=== PATIENT | female | born 1965 | race Caucasian/White ===

== ENCOUNTER 2020-01-11 13:45 | Outpatient (CLI) | payer MEDICARE, MEDICAID, SELFPAY ==
--- NOTE | 2020-01-11 13:48 | ECG_ITS ---
Measurements Intervals [place] Rate: 59 P: 47 HI: 176 QRS: 28 QRSD: 94 T: 32 QT: 409 QTc: 406 Interpretive Statements SINUS BRADYCARDIA BASELINE ARTIFACT- I, II, III, AVR, AVL, AVF BORDERLINE ECG Electronically Signed On 01-11-2020 14:39:13 CDT by Jewel Barrera D.O.
[2020-01-11 14:49] LABS: Blood Urea Nitrogen 12 mg/dL (7-17); Calcium 8.7 mg/dL (8.4-10.2); Carbon Dioxide 28 mmol/L (22-30); Chloride 102 mmol/L (98-107); Estimated Glomerular Filt Rate > 60; Glucose 79 mg/dL (65-105); Sodium 135 mmol/L (137-145)
[2020-01-16 15:42] LABS: Carbamazepine Tegretol 4.1 mcg/mL (4.0-12.0)
== END 2020-01-11 13:46 | disposition home or self-care (01) ==
LOC: ANHSURGERY 13:48
PROVIDERS: Anesthesiology; PCP Nurse Practitioner Family; Visit Provider Orthopaedic Surgery
DX: Z01.818 Encounter for other preprocedural examination (principal); I10 Essential (primary) hypertension; Z79.899 Other long term (current) drug therapy
CPT/HCPCS: 36415; 80048; 80156; 93005

== ENCOUNTER 2020-01-19 01:07 | Outpatient (CLI) | payer MEDICARE, MEDICAID, SELFPAY ==
[2020-01-19 16:42] LABS: SARS-CoV-2 RNA PCR Negative
== END 2020-01-19 01:08 | disposition home or self-care (01) ==
LOC: ANHCOVIDDT 01:08
PROVIDERS: Visit Provider Orthopaedic Surgery
DX: Z01.812 Encounter for preprocedural laboratory examination (principal); Z20.828 Contact with and (suspected) exposure to other viral communicable diseases
CPT/HCPCS: 87635; C9803; U0003

== ENCOUNTER 2020-01-22 00:10 | Day surgery (SDC) | payer MEDICARE, MEDICAID, SELFPAY ==
[2020-01-09 10:29] VITALS: BMI 27.3
[2020-01-22] VITALS (10 sets, daily range): BP systolic 127–183; BP diastolic 65–105; PULSE 57–108; RESP 13–17; TEMP 36.2–36.7; O2SAT 92–100
--- NOTE | 2020-01-22 07:24 | WPDHPUPDATE1 ---
History and Physical Update Update Date/Time: 01/22/20 07:24 History and Physical has been reviewed, including an updated exam of the patient. There are NO changes in the patient's condition. Risks, benefits, and alternatives have been discussed and questions answered. Patient agrees to proceed with procedure.
[2020-01-22] MEDS: LACTATED RINGERS 1,000 ML 30 ML IV CONT ×2 (09:10→11:34)
--- NOTE | 2020-01-22 09:30 | WPDANESEPPF ---
Anes - Initial Pre Proc Eval Procedure: Operation Date: 01/22/20 10:30 Proposed Procedures p Left Arthroscopic Rotator Cuff Repair With Subacromial Decompression, Possible Regeneten, Proceed As Indicated - Hang Grande MD Date/Time: 01/22/20 09:30 Surgeon: Hang Grande MD Pre Op Diagnosis: Left Rotator Cuff Tear Patient Data Age: 55 Gender: F Height: 1.7 m Weight: 84.6 kg Last Vital Signs Temp 36.7 C 01/22/20 09:00 Pulse 57 L 01/22/20 09:00 Resp 17 01/22/20 09:00 BP 127/65 01/22/20 09:00 Pulse Ox 98 01/22/20 09:00 Allergies Allergy/AdvReac Type Severity Reaction Status Date / Time Sulfa (Sulfonamide Allergy Unknown unknown Verified 01/11/20 13:13 Antibiotics) NSAIDS (Non-Steroidal AdvReac GI UPSET- Verified 01/11/20 13:13 Anti-Inflamma HISTORY GASTRIC BYPASS Home Medications Medication Instructions Recorded Confirmed Type hydrocodone 10 mg-acetaminophen 1 tablet PO Q4-6H PRN 08/29/19 01/11/20 History 325 mg tablet hydroxychloroquine 200 mg tablet 200 mg PO BID 08/29/19 01/11/20 History pregabalin 150 mg capsule 150 mg PO QID 08/29/19 01/11/20 History Diosmin Hesperidin 2 cap PO DAILY 01/09/20 01/11/20 History tesozyievg-xsclpvwqaldyk-vlvw 1 cap PO Q4-6H PRN 01/09/20 01/11/20 History carbamazepine 200 mg PO BID 01/09/20 01/11/20 History cetirizine 10 mg PO DAILY 01/09/20 01/11/20 History dexlansoprazole [Dexilant] 60 mg PO DAILY 01/09/20 01/11/20 History diclofenac epolamine 1.3 % TRANSDERMAL DAILY 01/09/20 01/11/20 History estradiol 0.01 % VAGINAL 2XW 01/09/20 01/11/20 History famotidine 20 mg PO BID 01/09/20 01/11/20 History fluoxetine 20 mg PO BID 01/09/20 01/11/20 History fluticasone propionate [Flonase 2 spray INTRANASAL BID 01/09/20 01/11/20 History Allergy Relief] hydrochlorothiazide 12.5 mg PO DAILY 01/09/20 01/11/20 History linaclotide [Linzess] 145 mcg PO HS 01/09/20 01/11/20 History lorazepam 0.5 mg PO BID PRN 01/09/20 01/11/20 History methocarbamol 750 mg PO TID 01/09/20 01/11/20 History montelukast 10 mg PO DAILY 01/09/20 01/11/20 History multivitamin 1 tablet PO DAILY 01/09/20 01/11/20 History primidone 50 mg PO DAILY 01/09/20 01/11/20 History rizatriptan 10 mg PO DIRECTED PRN 01/09/20 01/11/20 History zolpidem 10 mg PO HS 01/09/20 01/11/20 History Patient hx anesthesia problems: none Family hx anesthesia problems: none PMFSH Past Medical History Medical History (Updated 01/22/20 @ 09:31 by Mateo Parikh DO) Anxiety CVA (cerebral vascular accident) residual 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 Depression Dizziness DVT (deep venous thrombosis) Fatigue Fibromyalgia Headache, migraine Hemianopsia History of MRSA infection History of rheumatoid arthritis Hypertension TAYLOR (obstructive sleep apnea) Osteoarthritis of left acromioclavicular joint Osteoarthritis of right knee Pulmonary embolism Rotator cuff tear, left Seizure ocular seizures - well controlled Surgical History Surgical History (Updated 01/21/20 @ 09:40 by Mateo Parikh DO) History of bursectomy (~05/16/15) History of gastric bypass History of knee replacement (~2007) Partial tear of left rotator cuff Social History Social History Smoking status: Never smoker Alcohol intake: current Anes - Eval Final PreProcedure Day of Procedure 01/22/20 09:30 Patient weight: overweight Heart: regular rate and rhythm Lungs: clear to auscultation and normal air movement Airway: Mallampati scale class II Neurological: alert and oriented Last oral intake: >/= 8 hours ASA classification: III Emergent: no Anesthetic plan: proceed Anesthesia type and monitoring: general ETT and standard monitoring Informed Consent: The patient's anesthetic plan and its attendant risks and benefits were discussed with the patient/family/POA. Questions were solicited and answers pro
--- NOTE | 2020-01-22 09:31 | WPDANESPNB ---
Anes - Peripheral Nerve Block Date/Time: 01/22/20 09:31 I have discussed with the patient/family/POA the placement of a peripheral nerve block for post-operative pain management, including associated risks, benefits, complications, and side effects. Alternative methods of post-operative analgesia were detailed. Questions were solicited and answers provided to the satisfaction of the patient/family/POA. Time-Out: A pre-procedural Time-Out was completed immediately before starting the procedure and confirmed: Patient Identification, Site, Procedure, Patient Position and the Availability of Requisite Equipment. Clinical Indications: Acute post-operative pain management requested by the operative surgeon. Nerve Block Insertion Note Anes-nerve block: interscalene left Patient position: supine Skin prep: chlorhexidine Needle: 22 gauge, stimulating, insulated echogenic needle. Needle length: 50 mm Technique: ultrasound Injectate: bupivacaine 0.5% with epi 5 mcg/ml (30cc) Observations: tolerated well Complications: none Procedure start time:: 946 Procedure end time:: 949
[2020-01-22] MEDS: ceFAZolin 2 GM/D5W 50 ML 2 GM/50 ML BAG IVPB (10:05)
[2020-01-22 11:49] LABS: Glucose Point of Care 103 (65-105)
[2020-01-22] MEDS: HYDROMORPHONE HCL 1 MG/ML INJ 0.5 MG IV PUSH (12:20)
--- NOTE | 2020-01-22 12:23 | SUR.PHASEI ---
[address] NUNEZ IN REGARDS TO PTS POOR PAIN CONTROL- RECEIVED ORDER FOR DILAUDID.
[2020-01-22] MEDS: ONDANSETRON INJ 4 MG/2 ML VIAL IV PUSH (13:13)
--- NOTE | 2020-01-22 13:55 | SUR.PHASEII ---
1355 spoke with mom, gave her an update, and she is headed this way to pick her up
--- NOTE | 2020-01-22 15:56 | P.OP_ITS ---
Procedure Note - Detailed Date of procedure: 01/22/20 Pre-op diagnosis: Left Rotator Cuff Tear Post-op diagnosis: other ( 1. Subacromial impingement syndrome 2. Long head biceps tendon tear 3. Partial-thickness bursal side rotator cuff tear ) Procedure performed: 1. Arthroscopic extensive debridement including biceps tenotomy and debridement of the superior labrum and bursal side rotator cuff. 2. Arthroscopic subacromial decompression Description of procedure: There was external impingement on the bursal side cuff but minimal tearing. Superficial fraying. The articular side was quite healthy. There was an previous biceps rupture which appeared to have partially healed along the undersurface of the rotator interval and rotator cuff. The labrum was degenerative and debrided. The biceps was tenotomized. The subscapularis and articular rotator cuff appeared normal. The articular cartilage showed only minimal early grade 1 chondromalacia on the humerus. Anesthesia: GLMA Surgeon: Hang Grande MD Estimated blood loss (mL): 20 Complications: None Condition: stable Disposition: PACU Findings: The patient was given an interscalene block in the holding area. Preoperative antibiotics were given. The patient was brought to the operating room. Careful positioning in the beach chair was accomplished. The head neck were carefully positioned. A small bump was placed under the left shoulder. The shoulder was examined. There were no unusual findings on examination. The shoulder was prepped and draped in the usual sterile fashion. Standard posterior and anterior arthroscopic portals were established. The shoulder was inspected. The biceps tendon was noted to be scarred into the interval and undersurface of the supraspinatus. This appeared quite chronic. There was degenerative tearing of the superior labrum. Debridement was accomplished as well as tenotomy of the biceps. The supraspinatus subscapularis, and the rest of the rotator cuff appeared normal. Posterior and inferior labrum were normal. The anterior labrum was attenuated and appeared to be an anatomic variant. Attention was turned to the subacromial space. A complete bursectomy was performed. There was some thickening of the bursal tissues and evidence of subacromial impingement on the coracoacromial ligament and acromion. The acromion was clearly visualized. The coracoacromial ligament was released. Careful acromioplasty was performed utilizing views from both lateral and posterior. Loose bone fragments were carefully irrigated from the joint. The rotator cuff was carefully inspected and palpated. There was some softening mildly in the center portion but no evidence of significant tearing. The arthroscopic instruments were removed. The wounds were closed with interrupted 3-0 Monocryl suture followed by Steri- Strips. A sterile dressing was applied with a sling. The patient was extubated and brought to the recovery room in stable condition. There were no complications.
== END 2020-01-22 15:04 | disposition home or self-care (01) ==
PROVIDERS: PCP Nurse Practitioner Family; Visit Provider Orthopaedic Surgery
PROC: (CPT 29805; principal; 2020-01-22 10:30)
DX: M75.102 Unspecified rotator cuff tear or rupture of left shoulder, not specified as traumatic (principal); M75.42 Impingement syndrome of left shoulder; M94.212 Chondromalacia, left shoulder; G89.18 Other acute postprocedural pain; G40.909 Epilepsy, unspecified, not intractable, without status epilepticus; M79.7 Fibromyalgia; G47.33 Obstructive sleep apnea (adult) (pediatric); F41.8 Other specified anxiety disorders; I69.311 Memory deficit following cerebral infarction; I69.398 Other sequelae of cerebral infarction; H53.47 Heteronymous bilateral field defects; Z86.718 Personal history of other venous thrombosis and embolism; Z98.84 Bariatric surgery status
CPT/HCPCS: 29826; 29823; 64415; A4565; A9270; J0330; J0690; J1100; J1170; J1200; J2250; J2405; J2704; J3010; J7120